=== PATIENT | female | born 1990 | race Caucasian/White ===

== ENCOUNTER 2016-03-15 12:45 | Outpatient (RCR) | payer OTHER ==
[~2016-03-15 12:45] MED LIST: AMOXICILLIN 8751 TAB PO; BIRTH CONTROL PILLS; MOTRIN800 MG PO; MULTI VITAMINS1 TAB PO; VICODIN 5/5001 UDTAB PO
== END 2016-04-30 | disposition home or self-care (01) ==
LOC: WSPT
DX: M79.672 Pain in left foot (principal)

== ENCOUNTER → 2016-05-07 09:04 | Outpatient (RCR) | payer OTHER | END | disposition home or self-care (01) | LOC: WSPT 05-01 13:15 | DX: M79.672 Pain in left foot (principal) ==